=== PATIENT | male | born 1990 ===

== ENCOUNTER 2020-02-12 18:25 | Emergency (ER) | payer OTHER ==
[~2020-02-12] VITALS: Ht 190.5 cm; Wt 131.5 kg
== END 2020-02-12 21:30 | disposition home or self-care (01) ==
LOC: ER 18:25
DX: S50.872A Other superficial bite of left forearm, initial encounter (principal); Y04.1XXA Assault by human bite, initial encounter; Y93.89 Activity, other specified; Y92.69 Other specified industrial and construction area as the place of occurrence of the external cause; Y99.8 Other external cause status